=== PATIENT | male | born 1995 | race African-American/Black ===

== ENCOUNTER 2021-02-04 22:38 | Observation (INO) | payer OTHER ==
[2021-02-05 05:22] VITALS: BMI 20.8
[2021-02-05] MEDS ORDERED: HYDROcodone/Acetaminophen 5/325 mg Tablet PO PRN (07:22)
[2021-02-05] MEDS ORDERED: Hydrocerin (Eucerin) Cream 120 gm Jar TOP PRN (07:22)
[2021-02-05] MEDS ORDERED: Calcium Carbonate 500 MG ChewTAB PO PRN ×2 (07:22)
[2021-02-05] MEDS ORDERED: Cepastat Lozenges 1 LOZ PO PRN (07:22)
[2021-02-05] MEDS ORDERED: Senokot S 8.6-50 MG TAB PO PRN (07:22)
[2021-02-05] MEDS ORDERED: Acetaminophen 325 MG TAB PO PRN (07:22)
[2021-02-05] MEDS ORDERED: Sodium Chloride 0.65% Nasal 44 ML BOT EA NARE PRN (07:22)
[2021-02-05] MEDS ORDERED: Loratadine 10 MG TAB PO PRN (07:22)
[2021-02-05] MEDS ORDERED: Artificial Tear Sol 15 ML BOT EA EYE PRN (07:22)
[2021-02-05] MEDS ORDERED: Zolpidem Tartrate 5 MG TAB PO PRN (07:22)
[2021-02-05] MEDS ORDERED: Bisacodyl 5 MG TAB PO PRN (07:22)
[2021-02-05] MEDS ORDERED: Loperamide HCl 2 MG CAP PO PRN (07:22)
[2021-02-05] MEDS ORDERED: Guaifenesin DM 100-10/5 ML UDCUP PO PRN (07:22)
[2021-02-05] MEDS ORDERED: hydrALAZINE 20 MG/ML VIAL SLOW IVP PRN (07:22)
[2021-02-05] MEDS ORDERED: GUAIFENESIN SF SOLN 200 MG/10 ML UDCUP PO PRN (07:22)
[2021-02-05 08:31] LABS: #Basophils 0.1 thou/uL (0.0-0.2); #Eosinphils 0.1 thou/uL (0.0-0.7); #Lymphocytes 1.7 thou/uL (1.20-3.40); #Monocytes 0.4 thou/uL (0.11-0.59); #Neutrophils 1.6 thou/uL (1.40-6.50); %Basophils 1.4 % (0.0-1.0); %Eosinophils 2.7 % (0.0-10.0); %Lymphocytes 43.7 % (21.0-51.0); %Monocytes 11.3 % (0.0-10.0); %Neutrophils 40.9 % (42.0-75.0); Mean Corpuscular HGB CONC 35.2 g/dL (32.0-36.0); Mean Corpuscular Hemoglobin 31.4 pg (27.0-31.0); Mean Corpuscular Volume 89.1 fL (78.0-98.0); Mean Platelet Volume 7.3 fL (7.4-10.4); Platelet Count 182 thou/uL (130-400); RBC Distribution Width 11.1 % (11.5-14.5); Red Blood Cell (RBC) Count 5.11 mill/uL (4.70-6.10); White Blood Cell (WBC) Count 3.9 thou/uL (4.8-10.8)
[2021-02-05 08:48] LABS: Phosphorus 2.8 mg/dL (2.3-4.7)
[2021-02-05 08:55] LABS: ALT (SGPT) 12 U/L (8-55); AST (SGOT) 24 U/L (5-34); Albumin 4.3 g/dL (3.5-5.0); Alkaline Phosphatase 84 U/L (40-110); Anion Gap 13 mmol/L (10-20); BUN (Urea Nitrogen) 9 mg/dL (8.9-20.6); Bilirubin, Total 3.6 mg/dL (0.2-1.2); Calc. Creatinine Clearance 114 mL/min (70-130); Calcium 9.2 mg/dL (7.8-10.44); Carbon Dioxide 23 mmol/L (22-29); Chloride 108 mmol/L (98-107); Globulin 3.1 g/dL (2.4-3.5); Glucose 112 mg/dL (70-105); Protein, Total 7.4 g/dL (6.0-8.3); Sodium 140 mmol/L (136-145)
[2021-02-05] MEDS ORDERED: FLU VACC QS2021-22(6MOS UP)/PF 60 MCG/0.5 ML SYRINGE IM ONE (09:00)
[2021-02-05] MEDS ORDERED: Famotidine 20 MG TAB PO SCH (09:00)
[2021-02-05 11:23] VITALS: BP 131/68; TEMP 98.3
== END 2021-02-05 14:06 ==
LOC: 2NO 22:38 → UNDOADMOB 22:38 → 2NO 02-05 02:04 → UNDODISOB 02-05 14:06
PROVIDERS: ADMIT Internal Medicine; ATTEND Internal Medicine
DX: T65.92XA Toxic effect of unspecified substance, intentional self-harm, initial encounter (principal); R10.9 Unspecified abdominal pain; F41.9 Anxiety disorder, unspecified; F32.A Depression, unspecified; K40.90 Unilateral inguinal hernia, without obstruction or gangrene, not specified as recurrent; Y92.149 Unspecified place in prison as the place of occurrence of the external cause
CPT/HCPCS: 80053; 83735; 84100; 85025; G0378